=== PATIENT | female | born 1950 | race Caucasian/White ===

== ENCOUNTER → 2017-07-17 | Outpatient (CLI) | payer OTHER, MEDICARE ==
[~2017-07-17] VITALS: Ht 165.1 cm; Wt 76.7 kg
[~2017-07-17] MED LIST: CELEBREX 200 M200 M1 PO; CELEBREX 200 M200 MG PO; FLEXERIL PO; FOSAMAX 70 MG T70 MG PO; KLOR-CON 1010 MEQ PO; MAXZIDE-25 MG1 EACH PO; NORCO 5-325 TA1 EACH PO; NORVASC10 MG; NORVASC5 MG PO; PERCOCET PO; PRILOSEC40 MG PO; QUINU10 PD PO; TRAMADOL 50 MG50 MG PO; UNICOMPLEX M TA1 TA1 PO; VITAMIN D1000 UNI1 PO
--- NOTE | ~2017-07-17 | HPC ---
[facility] [place] [address] PAIN MANAGEMENT CONSULTATION Name: JAYME TREVIZO Room #: REG [facility] Arabella#: [id number] Admission: 07/17/17 Attend Phys: Luan Lozada DO Discharge: Date of : 54 Report #: [id number] THIS REPORT FOR: //name// CC: El Lozada DATE OF SERVICE: 07/17/2017 The patient is a 67-year-old female, prior seen in pain clinic 06/26/2017, given a left L4-L5 transforaminal epidural injection. The patient prior had a midline epidural injection 05/28/2017 with nominal efficacy. She returns to pain clinic today for prolonged visit, she was seen from 8:10-8:35 greater than 50% of this 25 minute visit was spent counseling the patient. The patient notes injection afforded 85% relief with slow return to baseline. She describes pain as 3-4 on VAS exacerbated with prolonged standing. I ordered MRI of the lumbar spine and reviewed it with the patient today. While physical examination is improving, straight leg raise is negative and strength is generally symmetric. The patellar reflex is absent on the left. The patient notes pain does continue to be problematic and interferes with function. PHYSICAL EXAMINATION: Shows 67-year-old female, BMI is 28.1 kilograms per meter squared. Vital signs stable as noted in the EMR. Lower extremity strength is generally symmetric at 4/5. Straight leg raise is negative. Patellar reflex is absent on the left, 2/5 on the right. Achilles reflexes are symmetric. 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 There is also a superimposed right foraminal disk at L4-L5 resulting in severe right neural foraminal stenosis, though this does not correlate with radicular symptoms at this time. ASSESSMENT: Symptomatic lumbar radiculopathy with a fairly significant pathology, likely requiring surgical intervention. Fortunately physical exam notes no myelopathy, no weakness or bowel or bladder continence changes at this time. RECOMMENDATION: Long discussion with the patient and her about therapeutic options. They are planning on leaving for the next 2 months. I suggest the patient continue Celebrex 200 mg daily, prior prescribed by Dr. Valadez. I will offer them a prescription for Percocet 5/325 (the patient is intolerant to hydrocodone due to pleuritis and is showing lack of efficacy with tramadol). We will write for 120 tablets enabling up to 4 tablets a day, [place] [address] PAIN MANAGEMENT CONSULTATION Name: JAYME TREVIZO Room #: REG TONIA Bell#: [id number] Admission: 07/17/17 Attend Phys: Luan Lozada DO Discharge: Date of : 54 Report #: [id number] she is actually taking 1 or 2 a day, this quantity should sufficient for 60 days, again they will be in [place] for the next 2 months. I did consult Neurosurgery for appointment in early September. I will be happy to see the patient if can repeat injection if needed clinically. If, however, symptoms continue to resolve, we may simply have her cancel the neurosurgical appointment and will follow up simply as needed. Symptomatic lumbar radiculopathy, clinical exam and history, incremental improvement following 2 epidural injections, but ongoing radicular symptoms are fairly significant physical compromise on MRI. Recommendations, we decided to postpone interventional therapy at this time. Follow up in 2 months when she gets back in [place] for a neurosurgical appointment. <ELECTRONICALLY SIGNED> By: Luan Lozada DO 07/18/17 [id number] Luan Lozada DO /nt
[2017-07-17 08:05] VITALS: BP 144/65
== END ==
LOC: PAIN 06:57
DX: M54.16 Radiculopathy, lumbar region (principal)

== ENCOUNTER → 2018-05-27 | Outpatient (CLI) | payer OTHER, MEDICARE | LOC: NUC 08:46 | DX: M81.0 Age-related osteoporosis without current pathological fracture (principal); M85.89 Other specified disorders of bone density and structure, multiple sites; Z78.0 Asymptomatic menopausal state ==